=== PATIENT | male | born 1985 ===

== ENCOUNTER 2017-06-11 03:55 | Emergency (ER) | payer OTHER ==
[2017-06-11 05:27] LABS: Bilirubin,Urine NEG (Negative); Blood,Urine NEG (Negative); Ketones,Urine NEG (Negative); Leukocyte Esterase,Urine NEG (Negative); Nitrite,Urine NEG (Negative); Protein,Urine <15 mg/dL mg/dL (Negative); RBC,Urine < 1.0 /HPF (0.0-6.0); Urobilinogen,Urine < 2.0 mg/dL (<2.0); WBC,Urine < 1.0 /HPF (0.0-6.0)
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
[2017-06-11 06:23] LABS: Urine Drugs of Abuse Note Disclamer
[2017-06-11 06:29] VITALS: BP 119/52
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
== END 2017-06-11 06:45 ==
LOC: ED 03:55 → EEVIPCON 03:55 → ED 06:45
DX: F10.129 Alcohol abuse with intoxication, unspecified (principal); F17.200 Nicotine dependence, unspecified, uncomplicated; V89.2XXA Person injured in unspecified motor-vehicle accident, traffic, initial encounter; Y93.9 Activity, unspecified; Y92.9 Unspecified place or not applicable; Y99.9 Unspecified external cause status
CPT/HCPCS: 36415; 70450; 72125; 80307; 81001; 99284; G0480; 80320